=== PATIENT | female | born 1980 | race Caucasian/White ===

== ENCOUNTER 2016-04-24 07:48 | Day surgery (SDC) | payer OTHER ==
[2016-04-24] MEDS ORDERED: IV START KIT ONE (07:55)
[2016-04-24] MEDS ORDERED: LACTATED RINGERS 1,000 ML ONE (07:55)
[2016-04-24] MEDS ORDERED: LACTATED RINGERS 1,000 ML IV SCH ×3 (07:59→11:29)
[2016-04-24] MEDS ORDERED: LIDOCAINE 1% 2 ML VIAL ID PRN (07:59)
[2016-04-24] MEDS ORDERED: ROCURONIUM BROMIDE 10 MG/ML DOSE IV ONE (08:39)
[2016-04-24] MEDS ORDERED: MIDAZOLAM HCL 1 MG/ML 2ML VIAL ONE (08:39)
[2016-04-24] MEDS ORDERED: PROPOFOL 20 ML IV ONE (08:39)
[2016-04-24] MEDS ORDERED: LIDOCAINE 2% (PRES FREE) 5 ML VIAL ONE (08:39)
[2016-04-24] MEDS ORDERED: FENTANYL 100 MCG/2 ML VIAL ONE (08:40)
[2016-04-24] MEDS ORDERED: SCOPOLAMINE 1.5 MG/72 HR 1 EACH PATCH TD ONE (09:23)
[2016-04-24] MEDS ORDERED: LIDOCAINE 1%/EPI (MULTI DOSE) 20 ML VIAL ONE ×2 (09:31→10:16)
[2016-04-24] MEDS ORDERED: SODIUM CHLORIDE 0.9% 50 ML ONE (10:16)
[2016-04-24] MEDS ORDERED: EPHEDRINE SULFATE UD SYR 25 MG 25 MG/5 ML SYRINGE IV ONE (10:18)
[2016-04-24] MEDS ORDERED: MEPERIDINE 25 MG/ML SYRINGE IV PRN (10:23)
[2016-04-24] MEDS ORDERED: PROMETHAZINE HCL 25 MG/ML VIAL IM PRN (10:23)
[2016-04-24] MEDS ORDERED: ATROPINE SULFATE 0.4 MG/1 ML VIAL IV PRN (10:23)
[2016-04-24] MEDS ORDERED: HYDROMORPHONE HCL 1 MG/ML SYRINGE IV PRN (10:23)
[2016-04-24] MEDS ORDERED: FENTANYL 100 MCG/2 ML VIAL IV PRN (10:23)
[2016-04-24] MEDS ORDERED: ONDANSETRON 4 MG/2ML 2 ML VIAL IV PRN (10:23)
[2016-04-24] MEDS ORDERED: NALOXONE HCL 0.4 MG/ML VIAL IV PRN (10:23)
--- NOTE | 2016-04-24 10:29 | HP ---
Katalina Enrique [id number] DATE OF PROCEDURE: 04/24/2016 PREOPERATIVE DIAGNOSIS: Sterilization. PROCEDURE: Laparoscopic bilateral tubal ligation. HISTORY AND PHYSICAL: The patient is a 35-year-old 4, para 3-0-1-3 who presents for elective sterilization by bilateral tubal ligation. PAST MEDICAL HISTORY: Patient has had history of vaginal deliveries x3. She had a history of depression on Cymbalta. She has also had a history of back surgery and dilation and curettage. She takes Tramadol as needed for chronic back pain. PAST SURGICAL HISTORY: The patient did have history of back surgery and dilation and curettage. SOCIAL HISTORY: Patient denies any history of smoking, alcohol use, or illicit drugs. ALLERGIES: THE PATIENT DOES HAVE SENSITIVITY TO NARCOTICS INCLUDING PERCOCET, HOWEVER, STATES THAT SHE CAN TOLERATE VICODIN. PHYSICAL EXAMINATION: GENERAL: The patient is in no apparent distress. HEART: Regular rate and rhythm. LUNGS: Clear to auscultation bilaterally. ABDOMEN: Nontender and nondistended without any masses. PELVIC: Normal with normal external genitalia. Uterus is mobile, anteverted, and nontender. There is no vaginal discharge or lesions. ASESSMENT AND PLAN: This is a 35-year-old female who desires permanent sterilization. We will perform a laparoscopic bilateral tubal ligation with Filshie clips. The procedure, indications, and risk have been reviewed including the risk of bleeding, infection, or injury to bowel, bladder, or other organs. Sterilization risks including gravid and ectopic have been reviewed. Preoperative instructions and postoperative expectations have been reviewed. JOB: [id number]
[2016-04-24] MEDS ORDERED: KETOROLAC TROMETHAMINE 30 MG/ML 1 ML VIAL ONE (11:01)
--- NOTE | 2016-04-24 11:23 | OP ---
Katalina Enrique [id number] DATE OF PROCEDURE: 04/24/2016 PREOPERATIVE DIAGNOSIS: Sterilization. POSTOPERATIVE DIAGNOSIS: Sterilization. PROCEDURE: Laparoscopic bilateral tubal ligation with Filshie clips. SURGEON: Rajeev Hayden M.D. ANESTHESIA: General. ESTIMATED BLOOD LOSS: 3 mL. COMPLICATIONS: None. OPERATIVE FINDINGS: Include grossly normal ovaries and tubes bilaterally and normal uterus. OPERATIVE COURSE: The patient was taken to the operating room and placed under general anesthesia. The patient was then placed in lithotomy position and prepped and draped in a sterile fashion. Bladder was emptied with a straight catheter. A uterine manipulator was then placed. Local anesthesia with lidocaine and epinephrine was injected locally at the subumbilicus and a 10 mm vertical incision was made at the umbilicus. The umbilicus was then tinted with hemostat and Varess needle was then placed. Intraabdominal placement was tested with saline syringe and the abdomen was then insufflated, however, this did not result in insufflation of the peritoneal cavity despite pressure of 15 mmHg and therefore the Varess needle was then removed and the scope was then placed under direct visualization with the Optiview port. Upon entering into the peritoneal cavity the trocar was then removed and abdomen was then insufflated directly. Intraabdominal placement was then confirmed with the scope. The patient was then placed in lithotomy position and the peritoneal cavity was then surveyed. The uterus, ovaries, and tubes appeared normal. The uterus was then elevated with uterine manipulator and the tube was then elevated. A second port of 5 mm was then placed in the midline suprapubic area under direct visualization. The tube was then grasped and lifted from the cul-de-sac. A Filshie clip was then placed in the mid isthmic portion of the tube. Subsequently, the left tube was then grasped and elevated out of the cul-de-sac and a Filshie clip was then placed in the mid isthmic portion of the tube. Adequate placement was confirmed and photos were taken. All instruments were then removed and the pelvis and abdomen were then surveyed and found to be otherwise normal. The abdomen was then desufflated and the ports were then removed. The umbilical incision was then closed with 0 Vicryl and 3-0 Monocryl at the skin and the suprapubic incision was then closed with 3-0 Monocryl. The uterine manipulator was then removed. The patient was then recovered from anesthesia and taken to the recovery room in stable condition. JOB: [id number]
[2016-04-24] MEDS ORDERED: ACETAMINOPHEN 325 MG TABLET PO PRN (11:29)
[2016-04-24] MEDS ORDERED: DIPHENHYDRAMINE HCL 50 MG/1 ML VIAL IV PRN (11:29)
[2016-04-24] MEDS ORDERED: HYDROCODONE/ACETAMINOPHEN 5/325MG TABLET PO PRN (11:29)
[2016-04-24] MEDS ORDERED: KETOROLAC TROMETHAMINE 30 MG/ML 1 ML VIAL IV PRN (11:29)
[2016-04-24] MEDS ORDERED: ACETAMINOPHEN 325 MG TABLET ONE (13:48)
== END 2016-04-24 14:44 | disposition home or self-care (01) ==
LOC: SDC 07:48
PROVIDERS: ATTEND Obstetrics & Gynecology
PROC: 0UL74CZ Occlusion of Bilateral Fallopian Tubes with Extraluminal Device, Percutaneous Endoscopic Approach (ICD-10-PCS; principal; 2016-04-24)
DX: Z30.2 Encounter for sterilization (principal); F32.9 Major depressive disorder, single episode, unspecified; Z88.5 Allergy status to narcotic agent
CPT/HCPCS: 58671; J3010; A9270 ×2; J1885; J2250; J7120